=== PATIENT | male | born 1985 | race Caucasian/White ===

== ENCOUNTER 2017-03-17 21:23 | Emergency (ER) | payer OTHER ==
[~2017-03-17] VITALS: Ht 175.2 cm; Wt 68.0 kg
[~2017-03-17 21:23] MED LIST: CLARITIN10 MG PO; NKHM; PEPCID20 MG PO; PHENERGAN25 MG RC; ZITHROMAX Z PA250 MG PO; ZOFRAN ODT4 MG SL
[2017-03-17 23:32] LABS: ALKALINE PHOSPHATASE 56 U/L (45-117); BUN 14 mg/dl (7-24); CHLORIDE 103 mmol/L (98-107); CREATININE 0.81 mg/dL (0.70-1.30); LIPASE 87 U/L (73-393); MAGNESIUM 1.7 mg/dL (1.5-2.1); POTASSIUM 3.4 mmol/L (3.5-5.1); SGOT/AST 19 IU/L (3-35); SGPT/ALT 23 U/L (12-78); SODIUM 138 mmol/L (136-145); TOTAL PROTEIN 7.1 gm/dL (6.4-8.2)
[2017-03-17 23:53] LABS: BASO % 0.1 % (0.0-1.0); HEMOGLOBIN 12.7 g/dl (14.0-18.0); LYMPH % 8.9 % (27.0-41.0); MEAN CELL VOLUME 90.7 fl (80.0-94.0); MEAN CORPUSCULAR HGB 31.1 pg (27.0-31.0); MEAN CORPUSCULAR HGB CONC 34.3 g/dl (33.0-37.0); MONO # 0.3 10*3/uL (0.1-1.0); MONO % 2.6 % (3.0-9.0); NEUT # 9.6 10*3/uL (2.3-7.9); NEUT % 88.1 % (47.0-73.0); PLATELET COUNT AUTOMATED 114 10*3/uL (130-400); RED BLOOD COUNT 4.08 10*6/uL (4.50-5.90); RED CELL DISTRI WIDTH 13.1 % (0-14.5); WHITE BLOOD COUNT 10.8 10*3/uL (4.8-10.8)
[2017-03-18 02:50] LABS: BILIRUBIN NEGATIVE (NEGATIVE); BLOOD NEGATIVE (NEGATIVE); CLARITY CLEAR (CLEAR); COLOR YELLOW (YELLOW); GLUCOSE NEGATIVE (NEGATIVE); KETONE NEGATIVE (NEGATIVE); LEUKO ESTERASE NEGATIVE (NEGATIVE); NITRITE NEGATIVE (NEGATIVE); SPECIFIC GRAVITY 1.015 (1.005-1.030); UROBILINOGEN 0.2 E.U./dl (0.2-1.0)
[2017-03-18 03:59] LABS: URINE AMPHETAMINES < 1000 (1000ng/ml); URINE BARBITURATES < 200 (200ng/ml); URINE BENZODIAZEPINES < 200 (200ng/ml); URINE CANNABINOIDS (THC) > 50 (50ng/ml); URINE COCAINE < 300 (300ng/ml); URINE METHADONE < 300 (300ng/ml); URINE OPIATES < 300 (300ng/ml); URINE PHENCYCLIDINE < 25 (25ng/ml)
[2017-03-18] MEDS ORDERED: ZOFRAN ODT4 MG SL (04:53)
[2017-03-18] MEDS ORDERED: PEPCID20 MG PO (04:54)
== END 2017-03-18 05:32 | disposition home or self-care (01) ==
LOC: ED 21:23
PROVIDERS: Emergency Medicine Emergency Medical Services
DX: R11.2 Nausea with vomiting, unspecified (principal); F17.200 Nicotine dependence, unspecified, uncomplicated; Z98.890 Other specified postprocedural states

== ENCOUNTER 2018-07-03 | Emergency (ER) | payer SELFPAY ==
[2018-07-03 07:33] LABS: BASO % 0.4 % (0.0-1.0); EOS # 0.1 10*3/uL (0.0-0.4); EOS % 1.6 % (1.0-4.0); HEMATOCRIT 43.9 % (42.0-52.0); HEMOGLOBIN 15.2 g/dl (14.0-18.0); LYMPH # 1.1 10*3/uL (1.3-4.4); LYMPH % 15.1 % (27.0-41.0); MEAN CELL VOLUME 92.8 fl (80.0-94.0); MEAN CORPUSCULAR HGB 32.1 pg (27.0-31.0); MEAN CORPUSCULAR HGB CONC 34.6 g/dl (33.0-37.0); MEAN PLATELET VOLUME 11.6 fl (9.6-12.3); MONO # 0.5 10*3/uL (0.1-1.0); MONO % 7.1 % (3.0-9.0); NEUT # 5.7 10*3/uL (2.3-7.9); NEUT % 75.7 % (47.0-73.0); PLATELET COUNT AUTOMATED 131 10*3/uL (130-400); RED BLOOD COUNT 4.73 10*6/uL (4.50-5.90); RED CELL DISTRI WIDTH 12.5 % (0-14.5); WHITE BLOOD COUNT 7.5 10*3/uL (4.8-10.8)
[2018-07-03 07:46] LABS: ALBUMIN 3.9 gm/dl (3.1-4.5); ALKALINE PHOSPHATASE 55 U/L (45-117); BUN 22 mg/dl (7-24); CHLORIDE 96 mmol/L (98-107); CREATININE 1.21 mg/dL (0.70-1.30); LIPASE 198 U/L (73-393); POTASSIUM 3.2 mmol/L (3.5-5.1); SGOT/AST 23 IU/L (3-35); SGPT/ALT 31 U/L (12-78); SODIUM 137 mmol/L (136-145); TOTAL PROTEIN 8.8 gm/dL (6.4-8.2)
[2018-07-03] MEDS ORDERED: ZOFRAN4 MG PO (09:54)
== END 2018-07-03 10:13 | disposition home or self-care (01) ==
PROVIDERS: Emergency Medicine
DX: E87.6 Hypokalemia (principal); M54.5 Low back pain; G43.A1 Cyclical vomiting, in migraine, intractable; K92.89 Other specified diseases of the digestive system; F17.200 Nicotine dependence, unspecified, uncomplicated; Z88.8 Allergy status to other drugs, medicaments and biological substances

== ENCOUNTER 2019-03-19 11:24 | Inpatient (IN) | payer OTHER ==
[~2019-03-19] VITALS: Ht 170.2 cm; Wt 51.8 kg
--- NOTE | ~2019-03-19 | EKG ---
[place], [place] ELECTROCARDIOGRAM REPORT NAME: AMAN PINA UNIT #: [id number] ROOM: 408 DOCTOR: NAUKL DRAFT REPORT BIRTHDATE: [birth year] [facility] Test Date: 2019-03-19 Test Time: 11:57:14 Pat Name: AMAN PINA Department: Room: 408 Gender: M Oven Technician: Nubia Lora : 1985 Requested By: JAELYN JIMENEZ Order Number: [id number] Reading MD: Chrissy Reyes Measurements Intervals [place] Rate: 38 P: 68 CO: 138 QRS: 66 QRSD: 95 T: 68 QT: 544 QTc: 433 Interpretive Statements Sinus bradycardia Probable left atrial enlargement Anteroseptal infarct, age indeterminate No previous ECG available for comparison Electronically Signed On 03-19-2019 12:17:39 PDT by Chrissy Reyes CM:EKGRPT:ELECTROCARDIOGRAM REPORT [id number] JAELYN MOTA DRAFT REPORT JAELYN JIMENEZ MD
[~2019-03-19 11:24] MED LIST changes: +ZOFRAN4 MG PO
[2019-03-19 11:25] VITALS: BP 113/49
[2019-03-19 11:49] LABS: BASO % 0.4 % (0.0-1.0); EOS # 0.1 10*3/uL (0.0-0.4); HEMOGLOBIN 14.3 g/dl (14.0-18.0); LYMPH # 0.9 10*3/uL (1.3-4.4); LYMPH % 13.1 % (27.0-41.0); MEAN PLATELET VOLUME 11.1 fl (9.6-12.3); MONO # 0.3 10*3/uL (0.1-1.0); NEUT # 5.5 10*3/uL (2.3-7.9); NEUT % 81.4 % (47.0-73.0); PLATELET COUNT AUTOMATED 148 10*3/uL (130-400); RED BLOOD COUNT 4.47 10*6/uL (4.50-5.90); RED CELL DISTRI WIDTH 12.9 % (0-14.5); WHITE BLOOD COUNT 6.8 10*3/uL (4.8-10.8)
--- NOTE | 2019-03-19 11:53 | NUR ---
UNABLE TO URINATE TO PROVIDE URINE SPECIMEN AT THIS TIME BUT IS AWARE OF NEED AND SPCIMEN CUP IS AT THE BEDSIDE.
--- NOTE | 2019-03-19 12:04 | NUR ---
ACTIVELY VOMITING. DR JIMENEZ UPDATED AND IS AT THE BEDSIDE.
[2019-03-19 12:06] LABS: ALBUMIN 4.3 gm/dl (3.1-4.5); ALKALINE PHOSPHATASE 65 U/L (45-117); BUN 18 mg/dl (7-24); CHLORIDE 105 mmol/L (98-107); CREATININE 0.97 mg/dL (0.70-1.30); POTASSIUM 3.7 mmol/L (3.5-5.1); SGOT/AST 18 IU/L (3-35); SGPT/ALT 30 U/L (12-78); SODIUM 138 mmol/L (136-145); TOTAL PROTEIN 8.4 gm/dL (6.4-8.2)
[2019-03-19 12:07] LABS: ETHYL ALCOHOL < 3.0 mg/dl (<3); TROPONIN I < 0.015 ng/ml (<0.045)
--- NOTE | 2019-03-19 12:43 | NUR ---
LAYING IN PRONE POSITION IN BED AND IN NO OBVIOUS DISTRESS. UPDATED. IV FLUIS INFUSING VIA PRESSURE BAG AT REQUEST OF DR JIMENEZ. IV SITE AYMPTOMATIC. FLU SWAB SENT TO THE LAB. STILL UNABLE TO PROVIDE URINE SPECIMEN. DENIES ANY NEEDS AT THIS TIME.
[2019-03-19 13:32] VITALS: BP 159/109
--- NOTE | 2019-03-19 13:35 | NUR ---
DR JIMENEZ MADE AWARE THAT PATIENT STILL HAVING NAUSE AND EMESIS. IN TO UPDATE ON PLAN TO ADMIT. FAMILY REMAINS AT THE BEDSIDE.
[2019-03-19 13:42] LABS: BILIRUBIN NEGATIVE (NEGATIVE); BLOOD NEGATIVE (NEGATIVE); CLARITY CLOUDY (CLEAR); COLOR YELLOW (YELLOW); GLUCOSE NEGATIVE (NEGATIVE); KETONE TRACE (NEGATIVE); LEUKO ESTERASE NEGATIVE (NEGATIVE); NITRITE NEGATIVE (NEGATIVE); PH 8.5 (5.0-9.0); SPECIFIC GRAVITY 1.015 (1.005-1.030); UROBILINOGEN 0.2 E.U./dl (0.2-1.0)
[2019-03-19 13:54] LABS: WBC 0-2 wbc/hpf (0-5)
[2019-03-19 14:00] LABS: URINE AMPHETAMINES < 1000 (1000ng/ml); URINE BARBITURATES < 200 (200ng/ml); URINE BENZODIAZEPINES < 200 (200ng/ml); URINE CANNABINOIDS (THC) > 50 (50ng/ml); URINE COCAINE < 300 (300ng/ml); URINE METHADONE < 300 (300ng/ml); URINE OPIATES < 300 (300ng/ml)
[2019-03-19 14:01] LABS: URINE PHENCYCLIDINE < 25 (25ng/ml)
--- NOTE | 2019-03-19 14:15 | NUR ---
CLOTHES AND BED LINENS CHANGED DUE TO SPILLING EMESIS BAG. COMPLAINED ABOUT HAVING TO CAHNGE AND CHILLS. ADDITIONAL WARM BLANKETS PROVIDED.
--- NOTE | 2019-03-19 14:22 | NUR ---
DR JIMENEZ IS AT THE [facility].
--- NOTE | 2019-03-19 14:41 | NUR ---
SPOKE WITH ROBERTO TO ADVISE OF ETA TO ASSIGNED ROOM.
[2019-03-19 15:00] VITALS: BP 149/60
--- NOTE | 2019-03-19 15:12 | NUR ---
A 33, admitted to , under the services of MATTHEW Fuller DO with a diagnosis of Bradycardia. Chief complaint is Nausea Vomitting. Patient arrived via stretcher from ER. Monitor applied. Initial assessment completed. Vital signs taken and recorded. MATTHEW FULLER DO notified of admission to the unit. Orders received. See assessment for past medical history, medications and allergies. Patient and/or family oriented to unit. [address] visitation policy reviewed. Clothing/patient valuable form completed. ROBERTO JOHN
[2019-03-19 16:00] VITALS: BP 149/60
--- NOTE | 2019-03-19 16:42 | NUR ---
Message left with [facility] regarding consult for bradycardia. Physician to follow up at bedside.
[2019-03-19 20:00] VITALS: BP 119/50
--- NOTE | 2019-03-19 20:50 | NUR ---
PATIENT RECEIVING TYLENOL FOR ABDOMINAL PAIN RATED 9/10.
--- NOTE | 2019-03-19 21:08 | NUR ---
PATIENT WAS UNABLE TO KEEP TYLENOL DOWN. CALLED DR PETERSON FOR NEW ORDERS.
--- NOTE | 2019-03-19 21:27 | NUR ---
PATIENT RECEIVED 1X ORDER OF MORPHINE FOR ABDOMINAL PAIN.
--- NOTE | 2019-03-19 23:52 | NUR ---
MEDICATED WITH MS 1 MG SLOW IV PUSH FOR C/O BACK PAIN RATED A 10/10.
[2019-03-20] VITALS: BP 138/54
--- NOTE | 2019-03-20 | NUR ---
PT. C/O BACK PAIN FROM THROWING UP. STATES THAT HE DOES NOT TAKE ANY PAIN MEDICATION AT HOME. INFORMED PATIENT THAT I WOULD CALL THE
--- NOTE | 2019-03-20 01:00 | NUR ---
RESTING IN BED WITH EYES CLOSED; PAIN MEDICATION APPARENTLY EFFECTIVE. CALL LIGHT WITHIN REACH.
--- NOTE | 2019-03-20 03:00 | NUR ---
CALLED DR. RESENDEZ PERTAINING TO PT. C/O LOWER BACK PAIN; NO NEW ORDERS RECEIVED.
--- NOTE | 2019-03-20 04:19 | NUR ---
MEDICATED WITH TYLENOL FOR C/O BACK PAIN.
--- NOTE | 2019-03-20 06:10 | NUR ---
RESTING IN BED WITH EYES CLOSED; TYLENOL GIVEN EARLIER APPARENTLY EFFECTIVE. NO FURTHER EMESIS THIS SHIFT. PT. HAD A SMALL EMESIS EARLIER OF CLEAR LIQUID WITH SOME MUCOUS IN IT. IV FLUIDS CONTINUE TO INFUSE ORDERED; IV SITE ASYMPTOMATIC. NO DISTRESS NOTED; CALL LIGHT WITHIN REACH.
[2019-03-20 07:05] LABS: BASO % 0.1 % (0.0-1.0); EOS % 0.1 % (1.0-4.0); HEMATOCRIT 38.3 % (42.0-52.0); LYMPH # 1.1 10*3/uL (1.3-4.4); LYMPH % 15.9 % (27.0-41.0); MEAN CELL VOLUME 91.4 fl (80.0-94.0); MEAN CORPUSCULAR HGB CONC 33.9 g/dl (33.0-37.0); MEAN PLATELET VOLUME 11.9 fl (9.6-12.3); MONO # 0.5 10*3/uL (0.1-1.0); MONO % 7.1 % (3.0-9.0); NEUT # 5.4 10*3/uL (2.3-7.9); NEUT % 76.5 % (47.0-73.0); PLATELET COUNT AUTOMATED 158 10*3/uL (130-400); RED BLOOD COUNT 4.19 10*6/uL (4.50-5.90); RED CELL DISTRI WIDTH 12.7 % (0-14.5)
[2019-03-20 07:14] LABS: ALBUMIN 3.6 gm/dl (3.1-4.5); BUN 13 mg/dl (7-24); CHLORIDE 102 mmol/L (98-107); POTASSIUM 3.2 mmol/L (3.5-5.1); SODIUM 135 mmol/L (136-145)
[2019-03-20 07:23] LABS: ALKALINE PHOSPHATASE 53 U/L (45-117); CHOLESTEROL 144 mg/dL (<200); CREATININE 0.84 mg/dL (0.70-1.30); FREE T4 1.05 ng/dl (0.76-1.46); HDL CHOLESTEROL 57 mg/dl (40-60); LDL CHOLESTEROL 76 mg/dL (9-159); PHOSPHOROUS 3.4 mg/dL (2.5-4.9); SGOT/AST 14 IU/L (3-35); SGPT/ALT 22 U/L (12-78); THYROID STIM HORMONE (HS) 0.386 uIU/ml (0.358-4.75); TOTAL PROTEIN 7.2 gm/dL (6.4-8.2); TRIGLYCERIDES 57 mg/dl (<150); VLDL CHOLESTEROL 11 mg/dL (6-40)
[2019-03-20 07:32] LABS: ACT PARTIAL THROMBO TIME 27.3 SECONDS (20.0-32.1)
[2019-03-20 08:06] LABS: VITAMIN D, 25-HYDROXY 52.7 ng/mL (30-100)
[2019-03-20 12:00] VITALS: BP 114/47
--- NOTE | 2019-03-20 12:15 | NUR ---
Contacted Dr. Sherman to verify whether or not cardiology was to consult patient before discharge or to cancel consultation. Per cardiology service not required at this time. Dr. Catherine notified, consultation cancelled.
--- NOTE | 2019-03-20 12:40 | NUR ---
Discharge instructions reviewed with patient/family. Patient receptive and verbalizes understanding. Follow-up care arranged. Written instructions given to patient/family. Patient and spouse educated on new medications and follow up visits with physicians. Patient ambulated from unit with and all personal belongings. ROBERTO JOHN
== END 2019-03-20 12:40 | disposition home or self-care (01) | DRG 102 ==
LOC: ED 11:24 → EDHOLD 13:43 → 4E 13:43
PROVIDERS: Emergency Medicine; Internal Medicine; ADMIT Internal Medicine
DX: G43.A1 Cyclical vomiting, in migraine, intractable (principal); E43 Unspecified severe protein-calorie malnutrition; Z68.1 Body mass index [BMI] 19.9 or less, adult; F12.10 Cannabis abuse, uncomplicated; I10 Essential (primary) hypertension; D72.810 Lymphocytopenia; R73.9 Hyperglycemia, unspecified; E83.41 Hypermagnesemia; K31.84 Gastroparesis; Z72.0 Tobacco use; Z84.89 Family history of other specified conditions; Z88.8 Allergy status to other drugs, medicaments and biological substances; Z79.899 Other long term (current) drug therapy

== ENCOUNTER 2019-10-25 09:03 | Inpatient (IN) | payer OTHER ==
[2019-10-25] VITALS (7 sets, daily range): BP systolic 98–137; BP diastolic 42–100
[~2019-10-25] VITALS: Ht 170.1 cm; Wt 50.2 kg
[2019-10-25 09:53] LABS: BASO % 0.1 % (0.0-1.0); HEMATOCRIT 47.7 % (42.0-52.0); LYMPH # 1.7 10*3/uL (1.3-4.4); MEAN CELL VOLUME 88.7 fl (80.0-94.0); MEAN CORPUSCULAR HGB 30.7 pg (27.0-31.0); MEAN CORPUSCULAR HGB CONC 34.6 g/dl (33.0-37.0); MEAN PLATELET VOLUME 11.3 fl (9.6-12.3); NEUT # 11.3 10*3/uL (2.3-7.9); NEUT % 80.5 % (47.0-73.0); PLATELET COUNT AUTOMATED 200 10*3/uL (130-400); RED BLOOD COUNT 5.38 10*6/uL (4.50-5.90); RED CELL DISTRI WIDTH 12.9 % (0-14.5)
[2019-10-25 10:13] LABS: ALBUMIN 5.3 gm/dl (3.1-4.5); CREATININE 2.69 mg/dL (0.70-1.30); POTASSIUM 3.3 mmol/L (3.5-5.1); TOTAL PROTEIN 9.9 gm/dL (6.4-8.2)
--- NOTE | 2019-10-25 10:35 | NUR ---
PT WITH NUMEROUS SHORT DURATION BOUTS OF LEG CRAMPS
--- NOTE | 2019-10-25 10:54 | NUR ---
REPORT CALLED TO ARAMIS MENG
--- NOTE | 2019-10-25 11:20 | NUR ---
Time: 1119 A 34 year old MALE admitted to under services of JENNIFER DUNLAP DO. Pt. arrived via stretcher from ER. Chief complaint: NAUSEA/VOMITING, ABDOMINAL PAIN/CRAMPING. BELONGINGS SHEET FILLED OUT, CALL LIGHT IN REACH. MEDIPORT ACCESSED IN RIGHT CHEST WHILE IN ER, IV FLUIDS INFUSING NO PROBLEMS. NO WOUNDS NOTED. PT DENY TAKING ANY HOME MEDICATIONS YUSRA CISSE
--- NOTE | 2019-10-25 12:01 | NUR ---
DR. RESENDEZ NOTIFIED OF LOW POSTASSIUM, WELL PATIENT STATING THAT HE CANNOT TAKE ANY ORAL MEDICATIONS AT THIS TIME, CONTINUES TO FEEL NAUSEATED.
[2019-10-25 14:46] LABS: BILIRUBIN NEGATIVE (NEGATIVE); BLOOD 2+ (NEGATIVE); CLARITY SL CLOUDY (CLEAR); COLOR YELLOW (YELLOW); GLUCOSE NEGATIVE (NEGATIVE); KETONE NEGATIVE (NEGATIVE); PH 6.5 (5.0-9.0)
[2019-10-25 14:47] LABS: BACTERIA TRACE; CALCIUM OXALATE CRYSTALS 1+; HYALINE CAST TNTC; LEUKO ESTERASE NEGATIVE (NEGATIVE); NITRITE NEGATIVE (NEGATIVE); UROBILINOGEN 0.2 E.U./dl (0.2-1.0); WBC 0-2 wbc/hpf (0-5)
--- NOTE | 2019-10-25 14:52 | NUR ---
PT REQUESTING A SLEEPING MEDICATION TONIGHT, PT STATES HAS NOT BEEN SLEEPING AT HOME. ALSO REQUESTING FOR IV ZOFRAN OR PHENERGAN, DOES NOT FEEL HE COULD TAKE ANY ORAL MEDICATIONS AT THIS TIME
--- NOTE | 2019-10-25 19:30 | NUR ---
24 HR chart check completed.
--- NOTE | 2019-10-25 20:30 | NUR ---
RESTING IN BED. RESPIRATIONS EASY. LUNGS DIMINISHED, CLEAR. PULSE OX 99% RA. ABD SOFT WITH NORMO BS. DENIES N/V/D AT PRESENT. SCDS PROVIDED AT PATIENT REQUEST. IV FLUIDS INFUSING PER ORDER. CALL LIGHT WITHIN REACH. NO VOICED COMPLAINTS
--- NOTE | 2019-10-25 21:41 | NUR ---
REQUESTED AND RECEIVED ZOFRAN AND RESTORIL PER PRN ORDER FOR COMPLAINTS OF NAUSEA AND TO ASSIST WITH SLEEP. CALL LIGHT WITHIN REACH. WILL MONITOR
--- NOTE | 2019-10-25 23:00 | NUR ---
MEDS APPEAR EFFECTIVE. SLEEPING. RESPIRATIONS EASY. IV FLUIDS MAINTAINED
[2019-10-26] VITALS: BP 113/62
--- NOTE | 2019-10-26 00:15 | NUR ---
PATIENT AWAKENED FOR 0000 VITALS AND IS NOW VOMITING. TOO EARLY FOR ZOFRAN AND UNABLE TO TOLERATE PO. DR DHILLON CONTACTED, NEW ORDERS RECEIVED
--- NOTE | 2019-10-26 00:30 | NUR ---
PATIENT WITH ALLERGY TO REGLAN, DR DHILLON INFORMED AND NEW ORDERS RECEIVED.
--- NOTE | 2019-10-26 00:50 | NUR ---
MEDICATED WITH PHENERGAN VIA INFUSION PUMP FOR ACTIVE VOMITING. PATIENT NOTED TO HAVE 300 CC EMESIS OF GREEN BILE-LIKE LIQUID.
--- NOTE | 2019-10-26 01:00 | NUR ---
CONTINUES TO VOMIT. EXPLAINED PHENERGAN BEING ADMINISTERED. WILL MONITOR
--- NOTE | 2019-10-26 02:00 | NUR ---
SLEEPING. IV FLUIDS MAINTAINED
--- NOTE | 2019-10-26 04:12 | NUR ---
MEDICATED WITH ZOFRAN TO ASSIST WITH NAUSEA. WILL MONITOR
--- NOTE | 2019-10-26 05:00 | NUR ---
MEDS APPEAR EFFECTIVE. SLEEPING. IV FLUIDS MAINTAINED. CALL LIGHT WITHIN REACH.
--- NOTE | 2019-10-26 05:50 | NUR ---
[facility] LABS DRAWN VIA [place]
--- NOTE | 2019-10-26 06:00 | NUR ---
C/O BACK PAIN RATING A 10. STATES UNABLE TO GET COMFORTABLE. ONLY PO TYLENOL ORDERED, PATIENT UNABLE TO KEEP ANYTHING DOWN. DR DHILLON CONTACTED, NEW ORDERS RECEIVED
--- NOTE | 2019-10-26 06:15 | NUR ---
MEDICATED WITH NORCO PER PRN ORDER FOR COMPLAINTS OF BACK PAIN RATING A 10. CALL LIGHT WITHIN REACH. WILL MONITOR FOR EFFECTIVENESS
[2019-10-26 06:24] LABS: ACT PARTIAL THROMBO TIME 26.8 SECONDS (20.0-32.1)
[2019-10-26 06:27] LABS: BASO % 0.2 % (0.0-1.0); EOS % 0.4 % (1.0-4.0); HEMATOCRIT 40.4 % (42.0-52.0); LYMPH # 1.7 10*3/uL (1.3-4.4); LYMPH % 18.2 % (27.0-41.0); MEAN CELL VOLUME 91.2 fl (80.0-94.0); MEAN CORPUSCULAR HGB 30.9 pg (27.0-31.0); MEAN CORPUSCULAR HGB CONC 33.9 g/dl (33.0-37.0); MEAN PLATELET VOLUME 11.3 fl (9.6-12.3); MONO # 0.8 10*3/uL (0.1-1.0); MONO % 7.9 % (3.0-9.0); NEUT # 6.9 10*3/uL (2.3-7.9); NEUT % 73.1 % (47.0-73.0); PLATELET COUNT AUTOMATED 146 10*3/uL (130-400); RED BLOOD COUNT 4.43 10*6/uL (4.50-5.90); RED CELL DISTRI WIDTH 12.9 % (0-14.5); WHITE BLOOD COUNT 9.5 10*3/uL (4.8-10.8)
[2019-10-26 06:49] LABS: ALBUMIN 3.8 gm/dl (3.1-4.5); ALKALINE PHOSPHATASE 48 U/L (45-117); CHLORIDE 104 mmol/L (98-107); CHOLESTEROL 154 mg/dL (<200); CREATININE 1.06 mg/dL (0.70-1.30); FREE T4 0.92 ng/dl (0.76-1.46); HDL CHOLESTEROL 44 mg/dl (40-60); LDL CHOLESTEROL 93 mg/dL (9-159); PHOSPHOROUS 2.5 mg/dL (2.5-4.9); POTASSIUM 3.5 mmol/L (3.5-5.1); SGOT/AST 14 IU/L (3-35); SGPT/ALT 28 U/L (12-78); SODIUM 139 mmol/L (136-145); TOTAL PROTEIN 7.2 gm/dL (6.4-8.2); TRIGLYCERIDES 85 mg/dl (<150); VLDL CHOLESTEROL 17 mg/dL (6-40)
[2019-10-26 06:54] LABS: THYROID STIM HORMONE (HS) 0.438 uIU/ml (0.358-4.75)
[2019-10-26 06:56] LABS: BUN 21 mg/dl (7-24)
[2019-10-26 07:59] LABS: VITAMIN D, 25-HYDROXY 64.1 ng/mL (30-100)
[2019-10-26 08:00] VITALS: BP 138/75
--- NOTE | 2019-10-26 10:47 | NUR ---
PT MEDICATED WITH PRN MORPHINE FOR C/O BACK PAIN AT THIS TIME. PT RATES PAIN 02/06. WILL MONITOR.
[2019-10-26 12:00] VITALS: BP 117/63
--- NOTE | 2019-10-26 12:04 | NUR ---
Health Care Coordinator in to talk to patient. Patient states lives at [place] with . There are 15 steps in the home. Physician: Kobe JACOB [facility] Home health services: [facility] GETS WEEKLY INFUSIONS Patient's level of ADLs: INDEPENDENT Patient has working utilities: YES DME: HAS IV PUMP, POLE FOR WEEKLY INFUSIONS Follow-up physician's appointment after d/c: WILL BE MADE BY HOSPITALIST NURSE DIRECTOR ON DISCAHRGE Does patient want to access PORTAL?: NO Discharge plan PT LIVES AT HOME WITH HIS AND IS INDEPENDENT IN HIS CARE. DENIES HE WILL HAVE ANY NEEDS ON DISCHARGE. PLAN IS TO RETURN HOME WITH WHEN MEDICALLY STABLE. WILL TRANSPORT HIM HOME. WILL CONTINUE TO FOLLOW.. CRISTINA RIVERO
[2019-10-26] MEDS ORDERED: ZOFRAN4 MG PO (14:15)
--- NOTE | 2019-10-26 14:35 | NUR ---
PT MEDICATED WITH PRN MORPHINE FOR C/O BACK PAIN. PT RATES PAIN 6/10. PT ADDITIONALLY MEDICATED WITH ZOFRAN FOR C/O NAUSEA. DR. AVERY NOTIFIED THAT PATIENT IS OUT OF HIS PO ZOFRAN AT HOME.
--- NOTE | 2019-10-26 14:53 | NUR ---
MEDIPORT ACCESS DISCONTINUED. DISCHARGE PAPERWORK, PRESCRIPTION AND FOLLOW UP CARE DISCUSSED. PT TRANPORTED OUT VIA WHEELCHAIR TO A PRIVATE CAR AT THE ER ENTRANCE.
== END 2019-10-26 14:53 | disposition home or self-care (01) | DRG 391 ==
LOC: ED 09:03 → EDHOLD 10:36 → 4E 10:36
PROVIDERS: Nurse Practitioner Family; ADMIT Internal Medicine
DX: K31.84 Gastroparesis (principal); N17.0 Acute kidney failure with tubular necrosis; E87.1 Hypo-osmolality and hyponatremia; R17 Unspecified jaundice; E87.3 Alkalosis; E87.2 Acidosis; E87.6 Hypokalemia; R00.1 Bradycardia, unspecified; R11.15 Cyclical vomiting syndrome unrelated to migraine; E86.0 Dehydration; D72.829 Elevated white blood cell count, unspecified; E87.8 Other disorders of electrolyte and fluid balance, not elsewhere classified; R73.9 Hyperglycemia, unspecified; F12.10 Cannabis abuse, uncomplicated; F17.210 Nicotine dependence, cigarettes, uncomplicated; Z84.0 Family history of diseases of the skin and subcutaneous tissue; Z71.6 Tobacco abuse counseling; Z88.8 Allergy status to other drugs, medicaments and biological substances

== ENCOUNTER 2019-12-15 17:48 | Inpatient (IN) | payer OTHER ==
[~2019-12-15] VITALS: Ht 170.1 cm; Wt 48.6 kg
[2019-12-15 18:15] VITALS: BP 131/74
[2019-12-15 19:20] LABS: BASO % 0.2 % (0.0-1.0); HEMATOCRIT 40.6 % (42.0-52.0); LYMPH # 0.9 10*3/uL (1.3-4.4); LYMPH % 12.8 % (27.0-41.0); MEAN CELL VOLUME 91.9 fl (80.0-94.0); MEAN CORPUSCULAR HGB 31.2 pg (27.0-31.0); MEAN PLATELET VOLUME 11.2 fl (9.6-12.3); MONO # 0.2 10*3/uL (0.1-1.0); MONO % 2.7 % (3.0-9.0); NEUT # 5.6 10*3/uL (2.3-7.9); NEUT % 84.1 % (47.0-73.0); PLATELET COUNT AUTOMATED 147 10*3/uL (130-400); RED BLOOD COUNT 4.42 10*6/uL (4.50-5.90); RED CELL DISTRI WIDTH 13.1 % (0-14.5); WHITE BLOOD COUNT 6.6 10*3/uL (4.8-10.8)
[2019-12-15 19:35] LABS: ALKALINE PHOSPHATASE 48 U/L (45-117); BUN 16 mg/dl (7-24); CHLORIDE 102 mmol/L (98-107); CREATININE 1.06 mg/dL (0.70-1.30); LIPASE 56 U/L (73-393); POTASSIUM 3.5 mmol/L (3.5-5.1); SGOT/AST 13 IU/L (3-35); SGPT/ALT 27 U/L (12-78); SODIUM 136 mmol/L (136-145); TOTAL PROTEIN 8.3 gm/dL (6.4-8.2)
[2019-12-16 01:00] VITALS: BP 128/67
[2019-12-16 01:23] VITALS: BP 127/56
[2019-12-16 01:43] LABS: BILIRUBIN NEGATIVE (NEGATIVE); BLOOD TRACE-INTACT (NEGATIVE); CLARITY CLEAR (CLEAR); COLOR YELLOW (YELLOW); GLUCOSE NEGATIVE (NEGATIVE); KETONE 3+ (NEGATIVE)
[2019-12-16 01:44] LABS: LEUKO ESTERASE NEGATIVE (NEGATIVE); NITRITE NEGATIVE (NEGATIVE); PH 6.5 (5.0-9.0); UROBILINOGEN 0.2 E.U./dl (0.2-1.0)
[2019-12-16 01:49] LABS: MUCOUS TRACE
[2019-12-16 01:50] LABS: WBC 0-2 wbc/hpf (0-5)
[2019-12-16 06:24] LABS: BASO % 0.3 % (0.0-1.0); EOS % 0.3 % (1.0-4.0); HEMATOCRIT 38.6 % (42.0-52.0); LYMPH # 1.5 10*3/uL (1.3-4.4); LYMPH % 19.4 % (27.0-41.0); MEAN CELL VOLUME 90.2 fl (80.0-94.0); MEAN CORPUSCULAR HGB 30.4 pg (27.0-31.0); MEAN CORPUSCULAR HGB CONC 33.7 g/dl (33.0-37.0); MEAN PLATELET VOLUME 11.6 fl (9.6-12.3); MONO # 0.6 10*3/uL (0.1-1.0); MONO % 7.7 % (3.0-9.0); NEUT # 5.7 10*3/uL (2.3-7.9); NEUT % 72.2 % (47.0-73.0); PLATELET COUNT AUTOMATED 148 10*3/uL (130-400); RED BLOOD COUNT 4.28 10*6/uL (4.50-5.90); WHITE BLOOD COUNT 7.9 10*3/uL (4.8-10.8)
[2019-12-16 06:57] LABS: INTERNATIONAL NORM RATIO 1.1 (2.0-3.5)
[2019-12-16 06:58] LABS: ALBUMIN 3.6 gm/dl (3.1-4.5); ALKALINE PHOSPHATASE 48 U/L (45-117); BUN 16 mg/dl (7-24); CHLORIDE 102 mmol/L (98-107); CREATININE 0.95 mg/dL (0.70-1.30); POTASSIUM 3.5 mmol/L (3.5-5.1); SGOT/AST 9 IU/L (3-35); SGPT/ALT 24 U/L (12-78); SODIUM 135 mmol/L (136-145); TOTAL PROTEIN 7.4 gm/dL (6.4-8.2)
[2019-12-16 07:04] LABS: THYROID STIM HORMONE (HS) 0.293 uIU/ml (0.358-4.75)
[2019-12-16 08:00] VITALS: BP 115/49
[2019-12-16 12:00] VITALS: BP 115/55
[2019-12-16 16:00] VITALS: BP 137/66
[2019-12-16 20:00] VITALS: BP 120/67
[2019-12-17] VITALS: BP 114/49
[2019-12-17 07:14] LABS: BASO % 0.4 % (0.0-1.0); EOS # 0.1 10*3/uL (0.0-0.4); EOS % 1.2 % (1.0-4.0); HEMATOCRIT 39.8 % (42.0-52.0); LYMPH # 1.3 10*3/uL (1.3-4.4); LYMPH % 24.3 % (27.0-41.0); MEAN CORPUSCULAR HGB 31.1 pg (27.0-31.0); MEAN CORPUSCULAR HGB CONC 33.2 g/dl (33.0-37.0); MEAN PLATELET VOLUME 12.4 fl (9.6-12.3); MONO # 0.4 10*3/uL (0.1-1.0); MONO % 8.1 % (3.0-9.0); NEUT # 3.4 10*3/uL (2.3-7.9); NEUT % 65.8 % (47.0-73.0); PLATELET COUNT AUTOMATED 128 10*3/uL (130-400); RED BLOOD COUNT 4.25 10*6/uL (4.50-5.90); RED CELL DISTRI WIDTH 13.1 % (0-14.5); WHITE BLOOD COUNT 5.2 10*3/uL (4.8-10.8)
[2019-12-17 07:17] LABS: MEAN CELL VOLUME 93.6 fl (80.0-94.0)
[2019-12-17 07:25] LABS: CHLORIDE 104 mmol/L (98-107); POTASSIUM 3.7 mmol/L (3.5-5.1); SODIUM 136 mmol/L (136-145)
[2019-12-17 07:28] LABS: BUN 14 mg/dl (7-24)
[2019-12-17 08:00] VITALS: BP 129/75
[2019-12-17 12:00] VITALS: BP 138/76
== END 2019-12-17 14:13 | disposition home or self-care (01) | DRG 392 ==
LOC: ED 17:48 → 4E 12-16 00:37 → EDHOLD 12-16 00:37 → 4E 12-16 00:52
PROVIDERS: Family Medicine; Internal Medicine; Student in an Organized Health Care Education/Training Program; ADMIT Family Medicine
DX: K31.84 Gastroparesis (principal); R17 Unspecified jaundice; Z68.1 Body mass index [BMI] 19.9 or less, adult; G43.A0 Cyclical vomiting, in migraine, not intractable; F17.210 Nicotine dependence, cigarettes, uncomplicated; D64.9 Anemia, unspecified; R73.9 Hyperglycemia, unspecified; D72.810 Lymphocytopenia; R82.4 Acetonuria; R31.21 Asymptomatic microscopic hematuria; R63.6 Underweight; R00.1 Bradycardia, unspecified; F12.10 Cannabis abuse, uncomplicated; Z71.6 Tobacco abuse counseling; Z79.899 Other long term (current) drug therapy; Z88.8 Allergy status to other drugs, medicaments and biological substances

== ENCOUNTER 2020-02-15 09:21 | Emergency (ER) | payer OTHER ==
[~2020-02-15] VITALS: Ht 170.1 cm; Wt 51.7 kg
[2020-02-15 10:27] LABS: BASO % 0.1 % (0.0-1.0); HEMATOCRIT 44.9 % (42.0-52.0); LYMPH # 1.1 10*3/uL (1.3-4.4); LYMPH % 12.4 % (27.0-41.0); MEAN CELL VOLUME 89.1 fl (80.0-94.0); MEAN CORPUSCULAR HGB 30.6 pg (27.0-31.0); MEAN CORPUSCULAR HGB CONC 34.3 g/dl (33.0-37.0); MEAN PLATELET VOLUME 12.1 fl (9.6-12.3); MONO # 0.7 10*3/uL (0.1-1.0); MONO % 7.4 % (3.0-9.0); NEUT # 7.3 10*3/uL (2.3-7.9); PLATELET COUNT AUTOMATED 181 10*3/uL (130-400); RED BLOOD COUNT 5.04 10*6/uL (4.50-5.90); RED CELL DISTRI WIDTH 13.2 % (0-14.5); WHITE BLOOD COUNT 9.1 10*3/uL (4.8-10.8)
[2020-02-15 10:42] LABS: ALBUMIN 4.8 gm/dl (3.1-4.5); ALKALINE PHOSPHATASE 63 U/L (45-117); BUN 29 mg/dl (7-24); CHLORIDE 87 mmol/L (98-107); CREATININE 1.45 mg/dL (0.70-1.30); POTASSIUM 2.9 mmol/L (3.5-5.1); SGOT/AST 16 IU/L (3-35); SGPT/ALT 32 U/L (12-78); SODIUM 131 mmol/L (136-145)
[2020-02-15] MEDS ORDERED: K-TAB20 MEQ PO (15:03)
== END 2020-02-15 16:12 | disposition home or self-care (01) ==
LOC: ED 09:21
PROVIDERS: Nurse Practitioner Family
DX: R11.15 Cyclical vomiting syndrome unrelated to migraine (principal); E87.6 Hypokalemia; F17.200 Nicotine dependence, unspecified, uncomplicated; Z88.8 Allergy status to other drugs, medicaments and biological substances; Z79.899 Other long term (current) drug therapy

== ENCOUNTER 2020-02-16 06:47 | Inpatient (IN) | payer OTHER ==
[~2020-02-16] VITALS: Ht 170.2 cm; Wt 45.4 kg
[~2020-02-16 06:47] MED LIST changes: +K-TAB20 MEQ PO
[2020-02-16 07:03] VITALS: BP 135/74
--- NOTE | 2020-02-16 07:23 | NUR ---
REFUSES TO REMOVE CLOTHING.
[2020-02-16 07:49] LABS: ALKALINE PHOSPHATASE 53 U/L (45-117); BUN 27 mg/dl (7-24); CHLORIDE 97 mmol/L (98-107); CREATININE 1.43 mg/dL (0.70-1.30); LIPASE 610 U/L (73-393); POTASSIUM 3.6 mmol/L (3.5-5.1); SGOT/AST 16 IU/L (3-35); SGPT/ALT 32 U/L (12-78); SODIUM 135 mmol/L (136-145); TOTAL PROTEIN 8.2 gm/dL (6.4-8.2)
--- NOTE | 2020-02-16 08:38 | NUR ---
VOMITING AGAIN. MEDICATED WITH PHENERGAN ORDERED.
--- NOTE | 2020-02-16 09:48 | NUR ---
EMESIS BAG SPILLED INTO BED. LINENS CHANGED. PT REFUSES TO REMOVE CLOTHING DESPITE THEM BEING WET.
--- NOTE | 2020-02-16 09:49 | NUR ---
STATES HE HAS POISON EDITH ON HIS FOREARM. UNABLE TO VISUALIZE HE WILL NOT REMOVE HIS CLOTHING. DENIES ANY WOUNDS. STATES POISON EDITH IS NOT OPEN OR SEEPING.
[2020-02-16 09:56] VITALS: BP 165/85
--- NOTE | 2020-02-16 10:00 | NUR ---
Time: 999 A 34 year old MALE admitted to 4E under services of JENNIFER DUNLAP DO. Pt. arrived via wheel chair from ER. Chief complaint: NAUSEA/VOMIING [place]LLY DEWITT
[2020-02-16 12:00] VITALS: BP 117/58
[2020-02-16 12:35] LABS: BASO % 0.3 % (0.0-1.0); EOS % 0.3 % (1.0-4.0); HEMATOCRIT 40.9 % (42.0-52.0); LYMPH # 1.3 10*3/uL (1.3-4.4); LYMPH % 17.3 % (27.0-41.0); MEAN CELL VOLUME 91.7 fl (80.0-94.0); MEAN CORPUSCULAR HGB 30.5 pg (27.0-31.0); MEAN CORPUSCULAR HGB CONC 33.3 g/dl (33.0-37.0); MEAN PLATELET VOLUME 11.3 fl (9.6-12.3); MONO # 0.4 10*3/uL (0.1-1.0); MONO % 5.3 % (3.0-9.0); NEUT # 5.7 10*3/uL (2.3-7.9); NEUT % 76.5 % (47.0-73.0); PLATELET COUNT AUTOMATED 151 10*3/uL (130-400); RED BLOOD COUNT 4.46 10*6/uL (4.50-5.90); RED CELL DISTRI WIDTH 12.9 % (0-14.5); WHITE BLOOD COUNT 7.5 10*3/uL (4.8-10.8)
--- NOTE | 2020-02-16 12:45 | NUR ---
MEDICATED WITH PRN MORPHINE FOR C/O BACK PAIN RATED AT 9 OUT OF 10.
--- NOTE | 2020-02-16 13:00 | NUR ---
PATIENT TAKEN TO US.
--- NOTE | 2020-02-16 13:30 | NUR ---
BACK IN ROOM.
[2020-02-16 16:00] VITALS: BP 115/57
--- NOTE | 2020-02-16 16:55 | NUR ---
MEDICATED WITH PRN MORPHINE PER ORDER AND REQUEST FOR BACK PAIN RATED 10 OUT OF 10.
[2020-02-16 17:25] LABS: URINE AMPHETAMINES < 1000 (1000ng/ml); URINE BARBITURATES < 200 (200ng/ml); URINE BENZODIAZEPINES < 200 (200ng/ml); URINE CANNABINOIDS (THC) > 50 (50ng/ml); URINE COCAINE < 300 (300ng/ml); URINE METHADONE < 300 (300ng/ml); URINE OPIATES > 300 (300ng/ml)
[2020-02-16 17:28] LABS: URINE PHENCYCLIDINE < 25 (25ng/ml)
[2020-02-16 17:38] LABS: BILIRUBIN NEGATIVE (NEGATIVE); BLOOD NEGATIVE (NEGATIVE); CLARITY CLEAR (CLEAR); COLOR YELLOW (YELLOW); GLUCOSE NEGATIVE (NEGATIVE); KETONE NEGATIVE (NEGATIVE)
[2020-02-16 17:39] LABS: LEUKO ESTERASE TRACE (NEGATIVE); NITRITE NEGATIVE (NEGATIVE)
[2020-02-16 17:54] LABS: BACTERIA 2+; EPITHELIAL CELLS 0-2; RBC 0-2 rbc/hpf (0-2)
--- NOTE | 2020-02-16 19:00 | NUR ---
ASSUMED CARE FOR THIS PT AT THIS TIME. PT C/O CHRONIC MUSCLE BACK PAIN 01/06. PT TEACHING GIVEN ON PRN TIMES. PT ALSO C/O MILD NAUSEA. LABS AND TESTS REVIEWED W/PT. CALL LIGHT IN REACH.
[2020-02-16 20:00] VITALS: BP 140/72
--- NOTE | 2020-02-16 22:17 | NUR ---
PT RESTING QUIETLY IN BED. NO S/S OF DISTRESS NOTED. PRN PAIN MED EFFECTIVE.
[2020-02-17] VITALS: BP 110/76
--- NOTE | 2020-02-17 02:24 | NUR ---
PT C/O BACK PAIN 02/06. PT RESTLESS IN BED. PT OFFERED NORCO. PT REFUSING. PT STATES THAT HE DOES NOT WANT TO SWALLOW ANYTHING YET. PT TEACHING GIVEN ON PAIN MEDICATIONS AND ENCOURAGED PO INTAKE. PT STATES HE HAD A FEW SIPS OF CHICKEN BROTH AND AN ICEE FOR DINNER YESTERDAY. MEDICATED W/MORPHINE IVP. WILL MONITOR. CALL LIGHT IN REACH.
--- NOTE | 2020-02-17 03:24 | NUR ---
PT STATES MORPHINE WAS SOMEWHAT EFFECTIVE FOR BACK PAIN RELIEF.
[2020-02-17 06:42] LABS: BASO % 0.4 % (0.0-1.0); EOS # 0.2 10*3/uL (0.0-0.4); EOS % 1.9 % (1.0-4.0); LYMPH # 1.8 10*3/uL (1.3-4.4); LYMPH % 23.3 % (27.0-41.0); MEAN CELL VOLUME 91.7 fl (80.0-94.0); MEAN CORPUSCULAR HGB 30.5 pg (27.0-31.0); MEAN CORPUSCULAR HGB CONC 33.3 g/dl (33.0-37.0); MEAN PLATELET VOLUME 11.6 fl (9.6-12.3); MONO # 0.6 10*3/uL (0.1-1.0); MONO % 7.7 % (3.0-9.0); NEUT # 5.3 10*3/uL (2.3-7.9); NEUT % 66.4 % (47.0-73.0); PLATELET COUNT AUTOMATED 132 10*3/uL (130-400); RED BLOOD COUNT 4.36 10*6/uL (4.50-5.90); RED CELL DISTRI WIDTH 12.4 % (0-14.5); WHITE BLOOD COUNT 7.9 10*3/uL (4.8-10.8)
[2020-02-17 06:54] LABS: ALBUMIN 3.2 gm/dl (3.1-4.5); ALKALINE PHOSPHATASE 46 U/L (45-117); BUN 18 mg/dl (7-24); CHLORIDE 106 mmol/L (98-107); CHOLESTEROL 153 mg/dL (<200); HDL CHOLESTEROL 42 mg/dl (40-60); LDL CHOLESTEROL 94 mg/dL (9-159); POTASSIUM 3.9 mmol/L (3.5-5.1); SGOT/AST 14 IU/L (3-35); SGPT/ALT 22 U/L (12-78); SODIUM 135 mmol/L (136-145); TOTAL PROTEIN 6.9 gm/dL (6.4-8.2); TRIGLYCERIDES 83 mg/dl (<150); VLDL CHOLESTEROL 17 mg/dL (6-40)
[2020-02-17 07:00] LABS: FREE T4 0.89 ng/dl (0.76-1.46)
[2020-02-17 07:07] LABS: ACT PARTIAL THROMBO TIME 28.3 SECONDS (20.0-32.1); INTERNATIONAL NORM RATIO 1.1 (2.0-3.5)
[2020-02-17 07:40] LABS: VITAMIN D, 25-HYDROXY 79.9 ng/mL (30-100)
[2020-02-17 08:00] VITALS: BP 100/54
--- NOTE | 2020-02-17 08:08 | NUR ---
MEDICATED WITH PRN MORPHINE PER ORDER AND REQUEST FOR BACK PAIN.
--- NOTE | 2020-02-17 08:25 | NUR ---
MORPHINE HELPS A LITTLE.
--- NOTE | 2020-02-17 09:00 | NUR ---
Boilermaker Welder in to talk to patient. Patient states lives at home with . There are 3 steps in the home. Physician: racheal willingham [facility] Home health services: none Patient's level of ADLs: INDEPENDENT Patient has working utilities: all working DME: none Follow-up physician's appointment after d/c: will be made by hospistalist nurse director upon discharge Does patient want to access PORTAL?: no Discharge plan discussed with patient, he lives at home with , he is independent in adls and ambulation, he states he will return home when medically stable and denies any home needs, case management will follow. CHRISTIE ALVARADO
[2020-02-17] MEDS ORDERED: Ondansetron4 MG PO (11:16)
--- NOTE | 2020-02-17 11:32 | NUR ---
PATIENT TO BE DISCHARGED TO HOME.
== END 2020-02-17 11:32 | disposition home or self-care (01) | DRG 438 ==
LOC: ED 06:47 → 4E 09:31 → EDHOLD 09:31 → 4E 09:54
PROVIDERS: Family Medicine; Hospitalist; ADMIT Internal Medicine
DX: K85.90 Acute pancreatitis without necrosis or infection, unspecified (principal); N17.0 Acute kidney failure with tubular necrosis; E87.1 Hypo-osmolality and hyponatremia; Z68.1 Body mass index [BMI] 19.9 or less, adult; R00.1 Bradycardia, unspecified; R63.6 Underweight; K31.84 Gastroparesis; M54.9 Dorsalgia, unspecified; I51.7 Cardiomegaly; E80.6 Other disorders of bilirubin metabolism; F17.210 Nicotine dependence, cigarettes, uncomplicated; Z71.6 Tobacco abuse counseling; Z88.8 Allergy status to other drugs, medicaments and biological substances; Z84.0 Family history of diseases of the skin and subcutaneous tissue; Z79.899 Other long term (current) drug therapy

== ENCOUNTER 2020-07-11 07:53 | Inpatient (IN) | payer OTHER ==
[~2020-07-11] VITALS: Ht 170 cm; Wt 54.0 kg
[~2020-07-11 07:53] MED LIST changes: +Ondansetron4 MG PO
[2020-07-11 07:58] VITALS: BP 112/69
[2020-07-11 08:33] LABS: BASO % 0.1 % (0.0-1.0); HEMATOCRIT 45.1 % (42.0-52.0); LYMPH # 1.1 10*3/uL (1.3-4.4); MEAN CELL VOLUME 89.8 fl (80.0-94.0); MEAN CORPUSCULAR HGB 30.3 pg (27.0-31.0); MEAN CORPUSCULAR HGB CONC 33.7 g/dl (33.0-37.0); MEAN PLATELET VOLUME 11.3 fl (9.6-12.3); MONO # 0.5 10*3/uL (0.1-1.0); MONO % 5.1 % (3.0-9.0); NEUT # 8.2 10*3/uL (2.3-7.9); NEUT % 83.5 % (47.0-73.0); PLATELET COUNT AUTOMATED 178 10*3/uL (130-400); RED BLOOD COUNT 5.02 10*6/uL (4.50-5.90); RED CELL DISTRI WIDTH 12.3 % (0-14.5); WHITE BLOOD COUNT 9.9 10*3/uL (4.8-10.8)
[2020-07-11 08:48] LABS: ALBUMIN 4.9 gm/dl (3.1-4.5); CREATININE 1.91 mg/dL (0.70-1.30); POTASSIUM 2.9 mmol/L (3.5-5.1); TOTAL PROTEIN 10.1 gm/dL (6.4-8.2)
[2020-07-11 10:49] VITALS: BP 121/89
[2020-07-11 11:50] VITALS: BP 114/46
[2020-07-11] MEDS ORDERED: IMMUNE GLOBULIN IV (12:00)
[2020-07-11 15:02] LABS: BUN 23 mg/dl (7-24); CHLORIDE 101 mmol/L (98-107); CREATININE 1.24 mg/dL (0.70-1.30); POTASSIUM 3.5 mmol/L (3.5-5.1); SODIUM 137 mmol/L (136-145)
[2020-07-11 16:00] VITALS: BP 115/54
[2020-07-11 18:01] LABS: BILIRUBIN Negative (Negative); BLOOD Negative (Negative); CLARITY Clear (Clear); COLOR Yellow (Yellow); GLUCOSE Negative (Negative); KETONE Negative (Negative); LEUKO ESTERASE Negative (Negative); NITRITE Negative (Negative); PH 7.5 (4.5-8.0); SPECIFIC GRAVITY 1.025 (1.001-1.030); UROBILINOGEN 0.2 E.U./dl (0.0-1.0)
[2020-07-11 18:30] LABS: BACTERIA TRACE; EPITHELIAL CELLS 0-2; RBC 0-2 rbc/hpf (0-2); WBC 0-2 wbc/hpf (0-5)
[2020-07-11 20:00] VITALS: BP 114/59
[2020-07-12] VITALS: BP 124/57
[2020-07-12 07:28] LABS: BASO % 0.2 % (0.0-1.0); EOS # 0.1 10*3/uL (0.0-0.4); EOS % 0.8 % (1.0-4.0); HEMATOCRIT 41.2 % (42.0-52.0); LYMPH # 1.6 10*3/uL (1.3-4.4); LYMPH % 19.1 % (27.0-41.0); MEAN CORPUSCULAR HGB CONC 32.8 g/dl (33.0-37.0); MONO # 0.5 10*3/uL (0.1-1.0); MONO % 6.1 % (3.0-9.0); NEUT # 6.1 10*3/uL (2.3-7.9); NEUT % 73.4 % (47.0-73.0); PLATELET COUNT AUTOMATED 133 10*3/uL (130-400); RED BLOOD COUNT 4.36 10*6/uL (4.50-5.90); RED CELL DISTRI WIDTH 12.2 % (0-14.5); WHITE BLOOD COUNT 8.3 10*3/uL (4.8-10.8)
[2020-07-12 07:29] LABS: ALBUMIN 3.8 gm/dl (3.1-4.5); BUN 21 mg/dl (7-24); CHLORIDE 104 mmol/L (98-107); CREATININE 0.99 mg/dL (0.70-1.30); POTASSIUM 4.1 mmol/L (3.5-5.1); SGOT/AST 14 IU/L (3-35); SGPT/ALT 20 U/L (12-78); SODIUM 135 mmol/L (136-145)
[2020-07-12 07:31] LABS: ALKALINE PHOSPHATASE 47 U/L (45-117); TOTAL PROTEIN 7.7 gm/dL (6.4-8.2)
[2020-07-12 07:42] LABS: ACT PARTIAL THROMBO TIME 27.1 SECONDS (20.0-32.1)
[2020-07-12 07:46] LABS: MEAN CELL VOLUME 94.5 fl (80.0-94.0)
[2020-07-12 07:51] LABS: VITAMIN D, 25-HYDROXY 70.6 ng/mL (30-100)
[2020-07-12 08:00] VITALS: BP 134/59
== END 2020-07-12 14:02 | disposition home or self-care (01) | DRG 391 ==
LOC: ED 07:53 → 5E 09:54 → EDHOLD 09:54 → 5E 10:35
PROVIDERS: Emergency Medicine; Social Worker Clinical; ADMIT Internal Medicine; ATTEND Internal Medicine
DX: K31.84 Gastroparesis (principal); N17.0 Acute kidney failure with tubular necrosis; E87.1 Hypo-osmolality and hyponatremia; R00.1 Bradycardia, unspecified; E87.6 Hypokalemia; E87.8 Other disorders of electrolyte and fluid balance, not elsewhere classified; F17.210 Nicotine dependence, cigarettes, uncomplicated; R73.9 Hyperglycemia, unspecified; E88.09 Other disorders of plasma-protein metabolism, not elsewhere classified; Z98.890 Other specified postprocedural states; Z88.8 Allergy status to other drugs, medicaments and biological substances; Z68.1 Body mass index [BMI] 19.9 or less, adult; Z79.899 Other long term (current) drug therapy; Z71.6 Tobacco abuse counseling

== ENCOUNTER 2020-07-24 11:01 | Emergency (ER) | payer OTHER ==
[~2020-07-24] VITALS: Ht 170.1 cm; Wt 49.4 kg
[~2020-07-24 11:01] MED LIST changes: +IMMUNE GLOBULIN IV
[2020-07-24 11:57] LABS: BASO % 0.2 % (0.0-1.0); EOS % 0.1 % (1.0-4.0); LYMPH # 1.4 10*3/uL (1.3-4.4); LYMPH % 13.4 % (27.0-41.0); MEAN CELL VOLUME 90.1 fl (80.0-94.0); MEAN CORPUSCULAR HGB 30.7 pg (27.0-31.0); MEAN PLATELET VOLUME 11.4 fl (9.6-12.3); MONO # 0.7 10*3/uL (0.1-1.0); MONO % 7.1 % (3.0-9.0); NEUT # 8.1 10*3/uL (2.3-7.9); NEUT % 78.9 % (47.0-73.0); PLATELET COUNT AUTOMATED 179 10*3/uL (130-400); RED BLOOD COUNT 4.66 10*6/uL (4.50-5.90); RED CELL DISTRI WIDTH 12.4 % (0-14.5); WHITE BLOOD COUNT 10.2 10*3/uL (4.8-10.8)
[2020-07-24 12:15] LABS: ALKALINE PHOSPHATASE 56 U/L (45-117); BUN 20 mg/dl (7-24); CHLORIDE 93 mmol/L (98-107); CREATININE 1.12 mg/dL (0.70-1.30); LIPASE 359 U/L (73-393); POTASSIUM 2.8 mmol/L (3.5-5.1); SGOT/AST 11 IU/L (3-35); SGPT/ALT 27 U/L (12-78); SODIUM 134 mmol/L (136-145); TOTAL PROTEIN 8.8 gm/dL (6.4-8.2)
[2020-07-24 17:05] LABS: BILIRUBIN Negative (Negative); BLOOD Negative (Negative); CLARITY Clear (Clear); COLOR Yellow (Yellow); GLUCOSE Negative (Negative); KETONE Negative (Negative); LEUKO ESTERASE Negative (Negative); NITRITE Negative (Negative); SPECIFIC GRAVITY >= 1.030 (1.001-1.030)
[2020-07-24 17:23] LABS: EPITHELIAL CELLS 0-2; RBC 0-2 rbc/hpf (0-2); WBC 0-2 wbc/hpf (0-5)
[2020-07-24 17:24] LABS: BACTERIA TRACE; MUCOUS TRACE
== END 2020-07-24 17:18 | disposition home or self-care (01) ==
LOC: ED 11:01
PROVIDERS: Physician Assistant
DX: K31.84 Gastroparesis (principal); E87.6 Hypokalemia; Z88.8 Allergy status to other drugs, medicaments and biological substances; Z87.891 Personal history of nicotine dependence

== ENCOUNTER → 2020-07-25 | Outpatient (CLI) | payer OTHER ==
[2020-07-25 12:50] LABS: ALBUMIN 3.7 gm/dl (3.1-4.5); ALKALINE PHOSPHATASE 49 U/L (45-117); BUN 19 mg/dl (7-24); CHLORIDE 104 mmol/L (98-107); SGOT/AST 9 IU/L (3-35); SGPT/ALT 25 U/L (12-78); SODIUM 141 mmol/L (136-145); TOTAL PROTEIN 7.7 gm/dL (6.4-8.2)
[2020-07-25 12:51] LABS: POTASSIUM 4.4 mmol/L (3.5-5.1)
== END | disposition home or self-care (01) ==
LOC: LAB 12:13
PROVIDERS: ATTEND Physician Assistant
DX: K31.84 Gastroparesis (principal); E87.6 Hypokalemia

== ENCOUNTER 2021-07-08 20:03 | Observation (INO) | payer OTHER ==
[~2021-07-08] VITALS: Ht 170.1 cm; Wt 52.2 kg
[2021-07-08 20:15] VITALS: BP 108/70
[2021-07-08 22:30] LABS: HEMATOCRIT 37.6 % (42.0-52.0); LYMPH # 0.7 10*3/uL (1.3-4.4); LYMPH % 11.8 % (27.0-41.0); MEAN CELL VOLUME 91.3 fl (80.0-94.0); MEAN CORPUSCULAR HGB 30.3 pg (27.0-31.0); MEAN CORPUSCULAR HGB CONC 33.2 g/dl (33.0-37.0); MEAN PLATELET VOLUME 11.3 fl (9.6-12.3); MONO # 0.1 10*3/uL (0.1-1.0); MONO % 1.9 % (3.0-9.0); NEUT # 5.1 10*3/uL (2.3-7.9); NEUT % 86.1 % (47.0-73.0); PLATELET COUNT AUTOMATED 129 10*3/uL (130-400); RED BLOOD COUNT 4.12 10*6/uL (4.50-5.90); RED CELL DISTRI WIDTH 12.5 % (0-14.5); WHITE BLOOD COUNT 5.9 10*3/uL (4.8-10.8)
[2021-07-08 22:46] LABS: ALBUMIN 2.2 gm/dl (3.1-4.5); ALKALINE PHOSPHATASE 35 U/L (45-117); BUN 10 mg/dl (7-24); CHLORIDE 119 mmol/L (98-107); CREATININE 0.48 mg/dL (0.70-1.30); POTASSIUM 2.7 mmol/L (3.5-5.1); SGOT/AST 11 IU/L (3-35); SGPT/ALT 20 U/L (12-78); SODIUM 146 mmol/L (136-145); TOTAL PROTEIN 5.2 gm/dL (6.4-8.2)
[2021-07-09 01:47] VITALS: BP 107/36
[2021-07-09 03:09] VITALS: BP 140/65
[2021-07-09 05:54] LABS: ALBUMIN 3.5 gm/dl (3.1-4.5); BUN 13 mg/dl (7-24); CHLORIDE 103 mmol/L (98-107); CHOLESTEROL 133 mg/dL (<200); CREATININE 0.88 mg/dL (0.70-1.30); SGOT/AST 17 IU/L (3-35); SGPT/ALT 29 U/L (12-78); SODIUM 137 mmol/L (136-145); TRIGLYCERIDES 77 mg/dl (<150)
[2021-07-09 05:59] LABS: ALKALINE PHOSPHATASE 50 U/L (45-117); FREE T4 0.89 ng/dl (0.76-1.46); LDL CHOLESTEROL 59 mg/dL (9-159); THYROID STIM HORMONE (HS) 0.467 uIU/ml (0.358-4.75); TOTAL PROTEIN 7.8 gm/dL (6.4-8.2)
[2021-07-09 06:03] VITALS: BP 103/46
[2021-07-09 06:13] LABS: HEMATOCRIT 37.3 % (42.0-52.0); LYMPH # 1.1 10*3/uL (1.3-4.4); LYMPH % 17.7 % (27.0-41.0); MEAN CELL VOLUME 91.6 fl (80.0-94.0); MEAN CORPUSCULAR HGB 30.2 pg (27.0-31.0); MEAN PLATELET VOLUME 12.7 fl (9.6-12.3); MONO # 0.4 10*3/uL (0.1-1.0); MONO % 6.2 % (3.0-9.0); NEUT # 4.9 10*3/uL (2.3-7.9); NEUT % 75.9 % (47.0-73.0); PLATELET COUNT AUTOMATED 125 10*3/uL (130-400); RED BLOOD COUNT 4.07 10*6/uL (4.50-5.90); RED CELL DISTRI WIDTH 12.6 % (0-14.5); WHITE BLOOD COUNT 6.4 10*3/uL (4.8-10.8)
[2021-07-09 06:16] LABS: POTASSIUM 4.1 mmol/L (3.5-5.1)
[2021-07-09 06:20] LABS: VITAMIN D, 25-HYDROXY 88.2 ng/mL (30-100)
[2021-07-09 06:22] LABS: ACT PARTIAL THROMBO TIME 54.5 SECONDS (20.0-32.1)
[2021-07-09 07:15] VITALS: BP 105/47
[2021-07-09 16:41] VITALS: BP 111/57
[2021-07-10 06:51] LABS: BASO % 0.4 % (0.0-1.0); EOS % 0.4 % (1.0-4.0); HEMATOCRIT 37.5 % (42.0-52.0); LYMPH # 1.5 10*3/uL (1.3-4.4); LYMPH % 28.2 % (27.0-41.0); MEAN CELL VOLUME 90.6 fl (80.0-94.0); MEAN CORPUSCULAR HGB 30.9 pg (27.0-31.0); MEAN CORPUSCULAR HGB CONC 34.1 g/dl (33.0-37.0); MEAN PLATELET VOLUME 11.7 fl (9.6-12.3); MONO # 0.3 10*3/uL (0.1-1.0); MONO % 6.2 % (3.0-9.0); NEUT # 3.4 10*3/uL (2.3-7.9); NEUT % 64.6 % (47.0-73.0); PLATELET COUNT AUTOMATED 130 10*3/uL (130-400); RED BLOOD COUNT 4.14 10*6/uL (4.50-5.90); RED CELL DISTRI WIDTH 12.4 % (0-14.5); WHITE BLOOD COUNT 5.3 10*3/uL (4.8-10.8)
[2021-07-10 07:09] LABS: CHLORIDE 104 mmol/L (98-107); POTASSIUM 3.9 mmol/L (3.5-5.1); SODIUM 137 mmol/L (136-145)
[2021-07-10 07:14] LABS: BUN 16 mg/dl (7-24); CREATININE 0.85 mg/dL (0.70-1.30)
[2021-07-10 08:16] VITALS: BP 124/69
[2021-07-10] MEDS ORDERED: PHENERGAN25 M3 PO (11:10)
== END 2021-07-10 11:51 | disposition home or self-care (01) ==
LOC: ED 20:03 → EDHOLD 07-09 01:13
PROVIDERS: Emergency Medicine; Internal Medicine; ADMIT Student in an Organized Health Care Education/Training Program; ATTEND Student in an Organized Health Care Education/Training Program
DX: K31.84 Gastroparesis (principal); E83.51 Hypocalcemia; E87.6 Hypokalemia; N17.0 Acute kidney failure with tubular necrosis; K31.89 Other diseases of stomach and duodenum; E83.42 Hypomagnesemia; R11.2 Nausea with vomiting, unspecified; Z20.822 Contact with and (suspected) exposure to COVID-19; E80.6 Other disorders of bilirubin metabolism; R73.9 Hyperglycemia, unspecified; E43 Unspecified severe protein-calorie malnutrition; E88.09 Other disorders of plasma-protein metabolism, not elsewhere classified; D69.6 Thrombocytopenia, unspecified; D64.9 Anemia, unspecified; E87.5 Hyperkalemia; E87.8 Other disorders of electrolyte and fluid balance, not elsewhere classified; F17.210 Nicotine dependence, cigarettes, uncomplicated; Z71.6 Tobacco abuse counseling; Z79.899 Other long term (current) drug therapy; Z79.01 Long term (current) use of anticoagulants

== ENCOUNTER 2021-07-31 09:03 | Emergency (ER) | payer OTHER ==
[~2021-07-31] VITALS: Ht 170.1 cm; Wt 49.9 kg
[~2021-07-31 09:03] MED LIST changes: +PHENERGAN25 M3 PO
[2021-07-31 10:11] LABS: BASO % 0.1 % (0.0-1.0); EOS % 0.1 % (1.0-4.0); HEMATOCRIT 40.3 % (42.0-52.0); LYMPH # 1.2 10*3/uL (1.3-4.4); LYMPH % 14.3 % (27.0-41.0); MEAN CELL VOLUME 90.8 fl (80.0-94.0); MEAN CORPUSCULAR HGB 31.1 pg (27.0-31.0); MEAN CORPUSCULAR HGB CONC 34.2 g/dl (33.0-37.0); MEAN PLATELET VOLUME 10.8 fl (9.6-12.3); MONO # 0.5 10*3/uL (0.1-1.0); MONO % 5.8 % (3.0-9.0); NEUT # 6.6 10*3/uL (2.3-7.9); NEUT % 79.5 % (47.0-73.0); PLATELET COUNT AUTOMATED 180 10*3/uL (130-400); RED BLOOD COUNT 4.44 10*6/uL (4.50-5.90); WHITE BLOOD COUNT 8.3 10*3/uL (4.8-10.8)
[2021-07-31 10:26] LABS: ALBUMIN 4.3 gm/dl (3.1-4.5); ALKALINE PHOSPHATASE 56 U/L (45-117); BUN 17 mg/dl (7-24); CHLORIDE 95 mmol/L (98-107); CREATININE 1.04 mg/dL (0.70-1.30); LIPASE 139 U/L (73-393); POTASSIUM 2.9 mmol/L (3.5-5.1); SGOT/AST 8 IU/L (3-35); SGPT/ALT 27 U/L (12-78); SODIUM 134 mmol/L (136-145)
== END 2021-07-31 14:26 | disposition home or self-care (01) ==
LOC: ED 09:03
PROVIDERS: Emergency Medicine
DX: R11.2 Nausea with vomiting, unspecified (principal); E87.6 Hypokalemia; Z88.8 Allergy status to other drugs, medicaments and biological substances; Z87.891 Personal history of nicotine dependence

== ENCOUNTER 2021-12-17 11:51 | Emergency (ER) | payer OTHER ==
[~2021-12-17] VITALS: Ht 170.1 cm; Wt 52.2 kg
[2021-12-17 14:16] LABS: BASO % 0.4 % (0.0-1.0); HEMATOCRIT 40.6 % (42.0-52.0); LYMPH # 0.6 10*3/uL (1.3-4.4); LYMPH % 7.6 % (27.0-41.0); MEAN CELL VOLUME 89.2 fl (80.0-94.0); MEAN CORPUSCULAR HGB 30.5 pg (27.0-31.0); MEAN CORPUSCULAR HGB CONC 34.2 g/dl (33.0-37.0); MONO # 0.2 10*3/uL (0.1-1.0); MONO % 2.7 % (3.0-9.0); NEUT # 6.9 10*3/uL (2.3-7.9); PLATELET COUNT AUTOMATED 174 10*3/uL (130-400); RED BLOOD COUNT 4.55 10*6/uL (4.50-5.90); RED CELL DISTRI WIDTH 12.3 % (0-14.5); WHITE BLOOD COUNT 7.8 10*3/uL (4.8-10.8)
[2021-12-17 14:32] LABS: ALKALINE PHOSPHATASE 57 U/L (45-117); BUN 17 mg/dl (7-24); CHLORIDE 106 mmol/L (98-107); CREATININE 1.02 mg/dL (0.70-1.30); LIPASE 217 U/L (73-393); POTASSIUM 3.7 mmol/L (3.5-5.1); SGOT/AST 16 IU/L (3-35); SGPT/ALT 28 U/L (12-78); SODIUM 140 mmol/L (136-145); TOTAL PROTEIN 7.5 gm/dL (6.4-8.2)
[2021-12-17 15:23] LABS: BILIRUBIN Negative (Negative); BLOOD Negative (Negative); CLARITY Cloudy (Clear); COLOR Yellow (Yellow); GLUCOSE Negative (Negative); KETONE Trace (Negative); LEUKO ESTERASE Negative (Negative); NITRITE Negative (Negative); SPECIFIC GRAVITY >= 1.030 (1.001-1.030); UROBILINOGEN 0.2 E.U./dl (0.0-1.0)
[2021-12-17 15:31] LABS: URINE AMPHETAMINES < 1000 (1000ng/ml); URINE BARBITURATES < 200 (200ng/ml); URINE BENZODIAZEPINES < 200 (200ng/ml); URINE CANNABINOIDS (THC) > 50 (50ng/ml); URINE COCAINE < 300 (300ng/ml); URINE METHADONE < 300 (300ng/ml); URINE OPIATES < 300 (300ng/ml)
[2021-12-17 15:32] LABS: URINE PHENCYCLIDINE < 25 (25ng/ml)
[2021-12-17 15:36] LABS: BACTERIA 2+
[2021-12-17 15:37] LABS: EPITHELIAL CELLS 0-2
== END 2021-12-17 19:27 | disposition home or self-care (01) ==
LOC: ED 11:51
PROVIDERS: Physician Assistant
DX: R11.2 Nausea with vomiting, unspecified (principal); Z88.8 Allergy status to other drugs, medicaments and biological substances; Z87.891 Personal history of nicotine dependence

== ENCOUNTER 2021-12-27 07:32 | Emergency (ER) | payer OTHER ==
[~2021-12-27] VITALS: Ht 170.1 cm; Wt 52.2 kg
[2021-12-27 08:41] LABS: BASO % 0.5 % (0.0-1.0); EOS # 0.1 10*3/uL (0.0-0.4); EOS % 1.3 % (1.0-4.0); HEMATOCRIT 43.5 % (42.0-52.0); LYMPH # 1.3 10*3/uL (1.3-4.4); LYMPH % 15.7 % (27.0-41.0); MEAN CELL VOLUME 91.2 fl (80.0-94.0); MEAN CORPUSCULAR HGB 30.2 pg (27.0-31.0); MEAN CORPUSCULAR HGB CONC 33.1 g/dl (33.0-37.0); MEAN PLATELET VOLUME 11.3 fl (9.6-12.3); MONO # 0.4 10*3/uL (0.1-1.0); MONO % 4.9 % (3.0-9.0); NEUT # 6.6 10*3/uL (2.3-7.9); NEUT % 77.5 % (47.0-73.0); PLATELET COUNT AUTOMATED 167 10*3/uL (130-400); RED BLOOD COUNT 4.77 10*6/uL (4.50-5.90); RED CELL DISTRI WIDTH 12.4 % (0-14.5); WHITE BLOOD COUNT 8.5 10*3/uL (4.8-10.8)
[2021-12-27 08:59] LABS: ALKALINE PHOSPHATASE 52 U/L (45-117); BUN 18 mg/dl (7-24); CHLORIDE 102 mmol/L (98-107); CREATININE 1.11 mg/dL (0.70-1.30); LIPASE 559 U/L (73-393); POTASSIUM 3.7 mmol/L (3.5-5.1); SGOT/AST 10 IU/L (3-35); SGPT/ALT 26 U/L (12-78); SODIUM 140 mmol/L (136-145); TOTAL PROTEIN 7.1 gm/dL (6.4-8.2)
[2021-12-27 11:35] LABS: BILIRUBIN Negative (Negative); BLOOD Negative (Negative); CLARITY Turbid (Clear); COLOR Yellow (Yellow); GLUCOSE Negative (Negative); KETONE Negative (Negative); LEUKO ESTERASE Negative (Negative); NITRITE Negative (Negative); UROBILINOGEN 0.2 E.U./dl (0.0-1.0)
[2021-12-27 11:39] LABS: PH 8.5 (4.5-8.0)
[2021-12-27 11:42] LABS: BACTERIA 2+; RBC 0-2 rbc/hpf (0-2); WBC 0-2 wbc/hpf (0-5)
[2021-12-27] MEDS ORDERED: PHENERGAN25 M3 PO (14:31)
== END 2021-12-27 12:15 | disposition home or self-care (01) ==
LOC: ED 07:32
PROVIDERS: Emergency Medicine
DX: K31.84 Gastroparesis (principal); Z88.8 Allergy status to other drugs, medicaments and biological substances; Z87.891 Personal history of nicotine dependence

== ENCOUNTER 2022-04-15 14:17 | Emergency (ER) | payer OTHER ==
[~2022-04-15] VITALS: Ht 170.1 cm; Wt 51.7 kg
[2022-04-15 15:28] LABS: BASO % 0.2 % (0.0-1.0); HEMATOCRIT 39.6 % (42.0-52.0); LYMPH # 0.5 10*3/uL (1.3-4.4); LYMPH % 8.3 % (27.0-41.0); MEAN CELL VOLUME 92.1 fl (80.0-94.0); MEAN CORPUSCULAR HGB 30.2 pg (27.0-31.0); MEAN CORPUSCULAR HGB CONC 32.8 g/dl (33.0-37.0); MEAN PLATELET VOLUME 11.3 fl (9.6-12.3); MONO # 0.2 10*3/uL (0.1-1.0); MONO % 2.8 % (3.0-9.0); NEUT # 4.8 10*3/uL (2.3-7.9); NEUT % 88.7 % (47.0-73.0); PLATELET COUNT AUTOMATED 138 10*3/uL (130-400); RED CELL DISTRI WIDTH 12.7 % (0-14.5); WHITE BLOOD COUNT 5.4 10*3/uL (4.8-10.8)
[2022-04-15 15:42] LABS: ACT PARTIAL THROMBO TIME 23.6 SECONDS (20.0-32.1)
[2022-04-15 15:49] LABS: ALKALINE PHOSPHATASE 55 U/L (45-117); BUN 17 mg/dl (7-24); CHLORIDE 106 mmol/L (98-107); LIPASE 159 U/L (73-393); POTASSIUM 3.8 mmol/L (3.5-5.1); SGOT/AST 16 IU/L (3-35); SGPT/ALT 26 U/L (12-78); SODIUM 140 mmol/L (136-145); TOTAL PROTEIN 8.7 gm/dL (6.4-8.2)
[2022-04-15 20:05] LABS: BILIRUBIN Negative (Negative); BLOOD Negative (Negative); CLARITY Cloudy (Clear); COLOR Yellow (Yellow); GLUCOSE Negative (Negative); KETONE Negative (Negative); LEUKO ESTERASE Negative (Negative); NITRITE Negative (Negative); SPECIFIC GRAVITY >= 1.030 (1.001-1.030); UROBILINOGEN 0.2 E.U./dl (0.0-1.0)
[2022-04-15 20:18] LABS: PH >= 9.0 (4.5-8.0)
[2022-04-15 20:29] LABS: RBC 0-2 rbc/hpf (0-2)
[2022-04-15 20:30] LABS: BACTERIA 1+; EPITHELIAL CELLS 0-2; HYALINE CAST 0-2
[2022-04-17] MEDS ORDERED: IMITREX100 MG PO (17:51)
== END 2022-04-16 00:33 | disposition home or self-care (01) ==
LOC: ED 14:17
PROVIDERS: Emergency Medicine
DX: K31.84 Gastroparesis (principal); R11.15 Cyclical vomiting syndrome unrelated to migraine; Z88.8 Allergy status to other drugs, medicaments and biological substances; F17.200 Nicotine dependence, unspecified, uncomplicated

== ENCOUNTER 2022-04-17 09:42 | Emergency (ER) | payer OTHER ==
[~2022-04-17] VITALS: Ht 170.1 cm; Wt 51.7 kg
[2022-04-17 10:38] LABS: BASO % 0.4 % (0.0-1.0); EOS % 0.2 % (1.0-4.0); HEMATOCRIT 38.7 % (42.0-52.0); LYMPH # 0.8 10*3/uL (1.3-4.4); LYMPH % 17.4 % (27.0-41.0); MEAN CELL VOLUME 91.7 fl (80.0-94.0); MEAN CORPUSCULAR HGB CONC 33.9 g/dl (33.0-37.0); MEAN PLATELET VOLUME 11.2 fl (9.6-12.3); MONO # 0.3 10*3/uL (0.1-1.0); MONO % 6.3 % (3.0-9.0); NEUT # 3.6 10*3/uL (2.3-7.9); NEUT % 75.5 % (47.0-73.0); PLATELET COUNT AUTOMATED 125 10*3/uL (130-400); RED BLOOD COUNT 4.22 10*6/uL (4.50-5.90); RED CELL DISTRI WIDTH 12.4 % (0-14.5); WHITE BLOOD COUNT 4.8 10*3/uL (4.8-10.8)
[2022-04-17 10:50] LABS: ALKALINE PHOSPHATASE 47 U/L (45-117); BUN 21 mg/dl (7-24); CHLORIDE 102 mmol/L (98-107); CREATININE 1.09 mg/dL (0.70-1.30); POTASSIUM 3.4 mmol/L (3.5-5.1); SGOT/AST 21 IU/L (3-35); SGPT/ALT 27 U/L (12-78); SODIUM 139 mmol/L (136-145); TOTAL PROTEIN 7.8 gm/dL (6.4-8.2)
[2022-04-17] MEDS ORDERED: IMITREX100 MG PO (17:51)
== END 2022-04-17 18:04 | disposition home or self-care (01) ==
LOC: ED 09:42
PROVIDERS: Internal Medicine
DX: R11.15 Cyclical vomiting syndrome unrelated to migraine (principal); Z88.8 Allergy status to other drugs, medicaments and biological substances; Z87.891 Personal history of nicotine dependence

== ENCOUNTER 2022-05-03 15:29 | Emergency (ER) | payer OTHER ==
[~2022-05-03] VITALS: Wt 49.9 kg
[~2022-05-03 15:29] MED LIST changes: +IMITREX100 MG PO
[2022-05-03 18:20] LABS: BASO % 0.3 % (0.0-1.0); EOS % 0.3 % (1.0-4.0); HEMATOCRIT 38.9 % (42.0-52.0); LYMPH # 0.9 10*3/uL (1.3-4.4); LYMPH % 25.4 % (27.0-41.0); MEAN CELL VOLUME 92.6 fl (80.0-94.0); MEAN CORPUSCULAR HGB 31.2 pg (27.0-31.0); MEAN CORPUSCULAR HGB CONC 33.7 g/dl (33.0-37.0); MEAN PLATELET VOLUME 11.5 fl (9.6-12.3); MONO # 0.2 10*3/uL (0.1-1.0); MONO % 6.2 % (3.0-9.0); NEUT # 2.5 10*3/uL (2.3-7.9); NEUT % 67.5 % (47.0-73.0); PLATELET COUNT AUTOMATED 146 10*3/uL (130-400); RED CELL DISTRI WIDTH 12.2 % (0-14.5); WHITE BLOOD COUNT 3.7 10*3/uL (4.8-10.8)
[2022-05-03 18:39] LABS: ALKALINE PHOSPHATASE 45 U/L (45-117); BUN 19 mg/dl (7-24); CHLORIDE 103 mmol/L (98-107); CREATININE 1.02 mg/dL (0.70-1.30); POTASSIUM 3.4 mmol/L (3.5-5.1); SGOT/AST 9 IU/L (3-35); SGPT/ALT 23 U/L (12-78); SODIUM 139 mmol/L (136-145); TOTAL PROTEIN 7.9 gm/dL (6.4-8.2)
[2022-05-03] MEDS ORDERED: ONDANSETRON4 MG SL (19:59)
== END 2022-05-03 20:12 | disposition home or self-care (01) ==
LOC: ED 15:29
PROVIDERS: Nurse Practitioner Family
DX: K31.84 Gastroparesis (principal); R11.15 Cyclical vomiting syndrome unrelated to migraine; Z88.8 Allergy status to other drugs, medicaments and biological substances; Z87.891 Personal history of nicotine dependence

== ENCOUNTER 2022-11-17 16:33 | Emergency (ER) | payer OTHER ==
[~2022-11-17] VITALS: Ht 170.1 cm; Wt 49.9 kg
[~2022-11-17 16:33] MED LIST changes: +ONDANSETRON4 MG SL
[2022-11-17 17:01] LABS: BASO % 0.2 % (0.0-1.0); EOS % 0.2 % (1.0-4.0); HEMATOCRIT 44.8 % (42.0-52.0); LYMPH # 1.1 10*3/uL (1.3-4.4); MEAN CELL VOLUME 93.3 fl (80.0-94.0); MEAN CORPUSCULAR HGB 31.5 pg (27.0-31.0); MEAN CORPUSCULAR HGB CONC 33.7 g/dl (33.0-37.0); MEAN PLATELET VOLUME 10.8 fl (9.6-12.3); MONO # 0.4 10*3/uL (0.1-1.0); MONO % 6.2 % (3.0-9.0); NEUT % 76.2 % (47.0-73.0); PLATELET COUNT AUTOMATED 190 10*3/uL (130-400); RED CELL DISTRI WIDTH 12.9 % (0-14.5); WHITE BLOOD COUNT 6.6 10*3/uL (4.8-10.8)
[2022-11-17 17:43] LABS: ALKALINE PHOSPHATASE 56 U/L (46-116); BUN 19 mg/dl (9-23); CHLORIDE 96 mmol/L (98-107); LIPASE 35 U/L (12-53); POTASSIUM 3.4 mmol/L (3.4-5.1); SGPT/ALT 25 U/L (10-49); TOTAL PROTEIN 8.5 gm/dL (6.0-8.0)
== END 2022-11-17 22:55 | disposition home or self-care (01) ==
LOC: ED 16:33
PROVIDERS: Nurse Practitioner Family
DX: K31.84 Gastroparesis (principal); E86.0 Dehydration; Z88.8 Allergy status to other drugs, medicaments and biological substances; Z87.891 Personal history of nicotine dependence

== ENCOUNTER 2023-04-18 10:31 | Emergency (ER) | payer OTHER ==
[2023-04-18 11:19] LABS: BASO % 0.1 % (0.0-1.0); HEMATOCRIT 45.2 % (42.0-52.0); LYMPH # 1.2 10*3/uL (1.3-4.4); LYMPH % 12.7 % (27.0-41.0); MEAN CELL VOLUME 88.3 fl (80.0-94.0); MEAN CORPUSCULAR HGB 31.6 pg (27.0-31.0); MEAN CORPUSCULAR HGB CONC 35.8 g/dl (33.0-37.0); MEAN PLATELET VOLUME 11.1 fl (9.6-12.3); MONO # 0.6 10*3/uL (0.1-1.0); MONO % 6.1 % (3.0-9.0); NEUT # 7.8 10*3/uL (2.3-7.9); NEUT % 80.8 % (47.0-73.0); PLATELET COUNT AUTOMATED 214 10*3/uL (130-400); RED BLOOD COUNT 5.12 10*6/uL (4.50-5.90); RED CELL DISTRI WIDTH 12.1 % (0-14.5); WHITE BLOOD COUNT 9.6 10*3/uL (4.8-10.8)
[2023-04-18 11:41] LABS: ALKALINE PHOSPHATASE 68 U/L (46-116); BUN 22 mg/dl (9-23); CHLORIDE 90 mmol/L (98-107); LIPASE 164 U/L (12-53); POTASSIUM 3.3 mmol/L (3.4-5.1); SGPT/ALT 14 U/L (5-49); TOTAL PROTEIN 9.1 gm/dL (6.0-8.0)
[2023-04-18] MEDS ORDERED: Phenergan25 MG PO (12:06)
[2023-04-18] MEDS ORDERED: ONDANSETRON4 MG SL (12:06)
== END 2023-04-18 12:11 | disposition home or self-care (01) ==
LOC: ED 10:31
PROVIDERS: Emergency Medicine
DX: K31.84 Gastroparesis (principal); M54.9 Dorsalgia, unspecified; R11.2 Nausea with vomiting, unspecified; Z88.8 Allergy status to other drugs, medicaments and biological substances; Z98.890 Other specified postprocedural states; Z87.891 Personal history of nicotine dependence; F12.10 Cannabis abuse, uncomplicated

== ENCOUNTER 2023-08-17 17:36 | Emergency (ER) | payer OTHER ==
[~2023-08-17] VITALS: Ht 167.6 cm; Wt 50.8 kg
[~2023-08-17 17:36] MED LIST changes: +Phenergan25 MG PO
[2023-08-17] MEDS ORDERED: SODIUM CHLORIDE 0.9% 1,000 ML IV SCH (17:55)
[2023-08-17] MEDS ORDERED: Ondansetron Hydrochloride 4 MG/2 ML VIAL IV ONE ×3 (17:55→20:45)
[2023-08-17 18:08] LABS: HEMATOCRIT 40.9 % (42.0-52.0); MEAN CELL VOLUME 91.5 fl (80.0-94.0); MEAN CORPUSCULAR HGB 30.6 pg (27.0-31.0); MEAN CORPUSCULAR HGB CONC 33.5 g/dl (33.0-37.0); MEAN PLATELET VOLUME 11.6 fl (9.6-12.3); PLATELET COUNT AUTOMATED 149 10*3/uL (130-400); RED BLOOD COUNT 4.47 10*6/uL (4.50-5.90); WHITE BLOOD COUNT 8.3 10*3/uL (4.8-10.8)
[2023-08-17 18:15] LABS: MANUAL DIFF REFLEX YES
[2023-08-17 18:23] LABS: BILIRUBIN Negative (Negative); BLOOD Negative (Negative); CLARITY Clear (Clear); COLOR Yellow (Yellow); GLUCOSE Negative (Negative); KETONE Trace (Negative); LEUKO ESTERASE Negative (Negative); NITRITE Negative (Negative); PH >= 9.0 (4.5-8.0); SPECIFIC GRAVITY 1.025 (1.001-1.030)
[2023-08-17 18:31] LABS: BUN 13 mg/dl (9-23); CHLORIDE 101 mmol/L (98-107); LIPASE 30 U/L (12-53); POTASSIUM 3.7 mmol/L (3.4-5.1)
[2023-08-17 18:31] LABS: URINE AMPHETAMINES Negative (1000ng/ml); URINE BARBITURATES Negative (200ng/ml); URINE BENZODIAZEPINES Negative (200ng/ml); URINE CANNABINOIDS (THC) Positive (50ng/ml); URINE COCAINE Negative (300ng/ml); URINE METHADONE Negative (300ng/ml); URINE OPIATES Negative (300ng/ml); URINE PHENCYCLIDINE Negative (25ng/ml)
[2023-08-17 18:34] LABS: PLATELET SUFFICIENCY NORMAL (NORMAL); TOTAL CELLS COUNTED 100 #CELLS
[2023-08-17 18:37] LABS: MUCOUS TRACE; WBC 0-2 wbc/hpf (0-5)
[2023-08-17] MEDS ORDERED: MAGNESIUM SULFATE 50 ML IV ONE (19:00)
[2023-08-17] MEDS ORDERED: Ketorolac Tromethamine 30 MG/ML VIAL IV ONE (19:50)
[2023-08-17] MEDS ORDERED: ONDANSETRON4 MG SL (20:05)
== END 2023-08-17 21:08 | disposition home or self-care (01) ==
LOC: ED 17:36
PROVIDERS: Nurse Practitioner Family
DX: R11.15 Cyclical vomiting syndrome unrelated to migraine (principal); E83.42 Hypomagnesemia; R00.1 Bradycardia, unspecified; Z88.8 Allergy status to other drugs, medicaments and biological substances; E78.00 Pure hypercholesterolemia, unspecified; R73.9 Hyperglycemia, unspecified; E87.5 Hyperkalemia; E83.41 Hypermagnesemia; E88.09 Other disorders of plasma-protein metabolism, not elsewhere classified; E83.51 Hypocalcemia; F12.10 Cannabis abuse, uncomplicated; Z98.890 Other specified postprocedural states; Z87.891 Personal history of nicotine dependence; Z79.899 Other long term (current) drug therapy

== ENCOUNTER 2023-09-05 18:02 | Emergency (ER) | payer OTHER ==
[~2023-09-05] VITALS: Ht 170.1 cm; Wt 49.0 kg
[2023-09-05] MEDS ORDERED: HEPARIN SODIUM 500 UNIT/5 ML SYR IV ONE (18:50)
== END 2023-09-05 19:49 | disposition home or self-care (01) ==
LOC: ED 18:02
DX: T82.598A Other mechanical complication of other cardiac and vascular devices and implants, initial encounter (principal); R07.89 Other chest pain; M54.2 Cervicalgia; M25.511 Pain in right shoulder; Z88.8 Allergy status to other drugs, medicaments and biological substances; Z87.891 Personal history of nicotine dependence; F12.10 Cannabis abuse, uncomplicated; Y82.8 Other medical devices associated with adverse incidents; Y92.89 Other specified places as the place of occurrence of the external cause

== ENCOUNTER 2023-11-04 09:38 | Emergency (ER) | payer OTHER ==
[~2023-11-04] VITALS: Ht 177.8 cm; Wt 49.9 kg
[2023-11-04] MEDS ORDERED: Ondansetron Hydrochloride 4 MG/2 ML VIAL IV ONE (09:55)
[2023-11-04] MEDS ORDERED: SODIUM CHLORIDE 0.9% 1,000 ML IV ONE (09:55)
[2023-11-04 10:12] LABS: BASO % 0.8 % (0.0-1.0); EOS # 0.1 10*3/uL (0.0-0.4); EOS % 2.6 % (1.0-4.0); HEMATOCRIT 41.2 % (42.0-52.0); LYMPH % 18.9 % (27.0-41.0); MEAN CELL VOLUME 92.8 fl (80.0-94.0); MEAN CORPUSCULAR HGB 30.4 pg (27.0-31.0); MEAN CORPUSCULAR HGB CONC 32.8 g/dl (33.0-37.0); MEAN PLATELET VOLUME 11.2 fl (9.6-12.3); MONO # 0.3 10*3/uL (0.1-1.0); NEUT # 3.6 10*3/uL (2.3-7.9); NEUT % 72.5 % (47.0-73.0); PLATELET COUNT AUTOMATED 151 10*3/uL (130-400); RED BLOOD COUNT 4.44 10*6/uL (4.50-5.90); RED CELL DISTRI WIDTH 12.2 % (0-14.5)
[2023-11-04 10:38] LABS: ALKALINE PHOSPHATASE 53 U/L (46-116); BUN 15 mg/dl (9-23); CHLORIDE 103 mmol/L (98-107); LIPASE 178 U/L (12-53); POTASSIUM 3.7 mmol/L (3.4-5.1); SGPT/ALT 12 U/L (5-49); TOTAL PROTEIN 7.5 gm/dL (6.0-8.0)
[2023-11-04] MEDS ORDERED: IOHEXOL 300 MG/ML 100 ML VIAL IV ONE (10:45)
[2023-11-04] MEDS ORDERED: ONDANSETRON4 MG SL (12:52)
== END 2023-11-04 13:04 | disposition home or self-care (01) ==
LOC: ED 09:38
PROVIDERS: Internal Medicine
DX: R11.2 Nausea with vomiting, unspecified (principal); Z88.8 Allergy status to other drugs, medicaments and biological substances; Z79.899 Other long term (current) drug therapy; Z87.891 Personal history of nicotine dependence

== ENCOUNTER 2024-02-18 08:21 | Emergency (ER) | payer OTHER ==
[~2024-02-18] VITALS: Ht 170.1 cm; Wt 50.3 kg
[2024-02-18] MEDS ORDERED: Ondansetron Hydrochloride 4 MG/2 ML VIAL IV ONE (08:45)
[2024-02-18] MEDS ORDERED: MORPHINE Sulfate 2 MG/ML SYR IV ONE (08:45)
[2024-02-18] MEDS ORDERED: Lactated Ringer's Solution 1,000 ML IV SCH (08:45)
[2024-02-18 09:01] LABS: BASO % 0.4 % (0.0-1.0); EOS # 0.1 10*3/uL (0.0-0.4); EOS % 1.1 % (1.0-4.0); HEMATOCRIT 43.7 % (42.0-52.0); LYMPH # 0.9 10*3/uL (1.3-4.4); LYMPH % 11.8 % (27.0-41.0); MEAN CELL VOLUME 92.8 fl (80.0-94.0); MEAN CORPUSCULAR HGB 30.1 pg (27.0-31.0); MEAN CORPUSCULAR HGB CONC 32.5 g/dl (33.0-37.0); MEAN PLATELET VOLUME 11.2 fl (9.6-12.3); MONO # 0.4 10*3/uL (0.1-1.0); NEUT # 6.5 10*3/uL (2.3-7.9); NEUT % 81.3 % (47.0-73.0); PLATELET COUNT AUTOMATED 162 10*3/uL (130-400); RED BLOOD COUNT 4.71 10*6/uL (4.50-5.90); RED CELL DISTRI WIDTH 12.5 % (0-14.5)
[2024-02-18 09:28] LABS: ALKALINE PHOSPHATASE 54 U/L (46-116); BUN 20 mg/dl (9-23); CHLORIDE 103 mmol/L (98-107); LIPASE 107 U/L (12-53); POTASSIUM 3.7 mmol/L (3.4-5.1); SGPT/ALT 16 U/L (5-49); TOTAL PROTEIN 7.3 gm/dL (6.0-8.0)
[2024-02-18 10:31] LABS: BILIRUBIN Negative (Negative); BLOOD Negative (Negative); CLARITY Turbid (Clear); COLOR Yellow (Yellow); GLUCOSE Negative (Negative); KETONE Negative (Negative); LEUKO ESTERASE Negative (Negative); NITRITE Negative (Negative); UROBILINOGEN 0.2 E.U./dl (0.0-1.0)
[2024-02-18 11:02] LABS: BACTERIA 2+
[2024-02-18] MEDS ORDERED: LIDOCAINE 1 EA PATCH T ONE (11:10)
[2024-02-18] MEDS ORDERED: SODIUM CHLORIDE 0.9% 1,000 ML IV ONE (11:10)
== END 2024-02-18 11:54 | disposition home or self-care (01) ==
LOC: ED 08:21
PROVIDERS: Emergency Medicine
DX: K31.84 Gastroparesis (principal); R11.2 Nausea with vomiting, unspecified; M54.9 Dorsalgia, unspecified; Z88.8 Allergy status to other drugs, medicaments and biological substances; E78.00 Pure hypercholesterolemia, unspecified; E87.5 Hyperkalemia; E83.41 Hypermagnesemia; E72.59 Other disorders of glycine metabolism; E83.51 Hypocalcemia; E83.42 Hypomagnesemia; D64.9 Anemia, unspecified; F12.10 Cannabis abuse, uncomplicated; Z98.890 Other specified postprocedural states; Z87.891 Personal history of nicotine dependence

== ENCOUNTER 2025-04-06 11:11 | Emergency (ER) | payer OTHER ==
[~2025-04-06] VITALS: Ht 170.1 cm; Wt 54.9 kg
[2025-04-06 12:02] LABS: BASO # 0.0 10*3/uL (0.0-0.1); BASO % 0.6 % (0.0-1.0); EOS # 0.2 10*3/uL (0.0-0.4); EOS % 3.8 % (1.0-4.0); MEAN CELL VOLUME 94.5 fl (80.0-94.0); MEAN CORPUSCULAR HGB 31.1 pg (27.0-31.0); MEAN PLATELET VOLUME 11.1 fl (9.6-12.3); MONO # 0.4 10*3/uL (0.1-1.0); MONO % 8.0 % (3.0-9.0); NEUT # 3.2 10*3/uL (2.3-7.9); NEUT % 62.9 % (47.0-73.0); NUCLEATED RED BLOOD CELL 0.0 % (0.0-0.0); NUCLEATED RED BLOOD CELL 0.0 10*3/uL (0.0-0.0); PLATELET COUNT AUTOMATED 147 10*3/uL (130-400); RED CELL DISTRI WIDTH 11.9 % (0-14.5)
[2025-04-06 12:21] LABS: BUN 15 mg/dl (9-23)
== END 2025-04-06 14:35 | disposition home or self-care (01) ==
LOC: ED 11:11
PROVIDERS: Nurse Practitioner
DX: R55 Syncope and collapse (principal); R42 Dizziness and giddiness; R56.9 Unspecified convulsions; Z87.891 Personal history of nicotine dependence; Z88.1 Allergy status to other antibiotic agents